=== PATIENT | male | born 1940 | race Caucasian/White ===

== ENCOUNTER 2017-12-21 10:26 | Outpatient (CLI) | payer MEDICARE, BC ==
--- NOTE | 2017-12-22 01:20 | HP ---
DATE OF SERVICE: 12/21/2017. HISTORY OF PRESENT ILLNESS: Mr. Luis Denis is a very pleasant 77-year-old gentleman who presents to the [facility] for evaluation of multiple venous ulcers of the right and left lower legs. The patient states that the ulcerations had been present for approximately 2 weeks. The patient states t hat three days after he noted the presence of the ulcerations, he was seen by his primary care provid er. Shortly thereafter, the patient began receiving dressing changes of Silvadene, gauze, Kerlix, an d Louis for the ulcerations of his right and left lower legs. The patient was referred to the Wound Ce nter by his primary care provider, Marichuy Vidal. PAST MEDICAL HISTORY: 1. Diabetes mellitus. 2. Hypertension. 3. Prostate carcinoma. 4. Atrial fibrillation. 5. Valvular heart disease. PAST SURGICAL HISTORY: Multiple prostate biopsies. MEDICATIONS: 1. Aspirin. 2. Humulin. 3. Toujeo. 4. Calcium. 5. Vitamin D. 6. Xarelto. 7. Olmesartan. ALLERGIES: No known diagnosed allergies. SOCIAL HISTORY: Significant for tobacco use of up to 6 cigars per day for 3 years. The patient admi ts to the consumption of up to 2 drinks per week for 60 years. The patient states that he began cons uming alcohol as a teenager and stopped consuming alcohol at age 74. FAMILY HISTORY: Significant for diabetes mellitus. The patient states that his mother, son, and cou sins were diagnosed with diabetes mellitus. Family history is negative for coronary artery disease. PHYSICAL EXAMINATION: VITAL SIGNS: Temperature 97.5, pulse 58, respirations 20, blood pressure 146/69. Accu-Chek 162. GENERAL: 77-year-old gentleman sitting on table in examination room in no acute distress. HEENT: Normocephalic, atraumatic. NECK: No nuchal rigidity. CHEST: Clear to auscultation. CARDIOVASCULAR: Regular rate and rhythm. ABDOMEN: Soft. EXTREMITIES: Multiple venous ulcers are present over the right and left lower legs. Granulation tis emiliana is present within the margins of each wound. No purulent drainage is associated with any of the wounds. No cellulitis of the right or left lower legs is appreciated. No maceration of the skin of the right or left lower legs is noted. Erythema of the right and left lower legs is present and appe ars to be secondary to stasis changes as opposed to an infectious process. A pedal pulse is palpable on the right and on the left. No significant edema of the right or left lower extremities is apprec iated on exam today. ASSESSMENT AND PLAN: 1. Varicose veins with ulcers and inflammation. Silverlon, Webril, and the 3M Coban two-layer compr ession system will be applied to the ulcerations of the right and left lower legs today. ABDs will b e utilized as needed at the time of dressing changes. No antibiotics will be prescribed today based upon the appearance of the wounds. I will see Mr. Denis again in one week. The patient understands and is in agreement with the preceding treatment plan. 2. Diabetes mellitus. The patient's Accu-Chek in clinic today is 162. The patient has been told at for optimal wound healing, his blood glucoses should remain below 150. 3. Hypertension. 4. Prostate carcinoma. The patient states that he received 28 days of external beam radiation in past by Dr. Golden Hackett. He states that he also received treatment with radioactive iodine i mplants in 10/2014. 5. Atrial fibrillation. The patient states he has been placed on medication for atrial fibrillation in addition to Xarelto. 6. Valvular heart disease.
[2017-12-25] MEDS ORDERED: Sodium Chloride 0.9% 15 ML NEB ONE (16:52)
== END 2017-12-21 10:27 | disposition home or self-care (01) ==
LOC: WCC 10:26
PROVIDERS: ATTEND Family Medicine
DX: I83.219 Varicose veins of right lower extremity with both ulcer of unspecified site and inflammation (principal); L97.919 Non-pressure chronic ulcer of unspecified part of right lower leg with unspecified severity; E11.622 Type 2 diabetes mellitus with other skin ulcer; I10 Essential (primary) hypertension; C61 Malignant neoplasm of prostate; I48.91 Unspecified atrial fibrillation; I38 Endocarditis, valve unspecified
CPT/HCPCS: 29581 ×2; 82962; 97139; G0463; 36416; 99204

== ENCOUNTER 2017-12-28 10:31 | Outpatient (CLI) | payer MEDICARE, BC ==
--- NOTE | 2017-12-28 13:09 | PRG ---
DATE OF SERVICE: 12/28/2017 HISTORY: Mr. Luis Denis is a very pleasant 77-year-old gentleman who presents to the Wound [facility] for evaluation of multiple venous ulcerations of the right and left lower legs. The patient stated at the time of his initial presentation to the Wound Center that the ulcerations had been present fo r approximately 2 weeks. The patient stated that 3 days after he noted the presence of the ulceratio ns, he was seen by his primary care provider. Shortly thereafter, the patient began receiving dressi ng changes of Silvadene, gauze, Kerlix, and OLGA for the ulcerations of his right and left lower legs. The patient was referred to the Wound Center by his primary care provider, Marichuy Hyde. Afte r being seen in the Wound Center, the ulcerations were dressed with Silverlon, Webril, and the 3M Cob an 2 layer compression system. PHYSICAL EXAMINATION: VITAL SIGNS: Temperature 97.8, pulse 68, respirations 20, blood pressure 153/71, Accu-Chek 154. EXTREMITIES: Multiple venous ulcers are present over the right and left lower legs. The wounds are granulating. No purulent drainage is associated with any of the wounds. No cellulitis of the right or left lower leg is appreciated. No maceration of the skin of the right or left lower leg is noted. No cellulitis of the right or left lower leg is appreciated. A posterior tibial pulse is palpable on the right and on the left. No significant edema of the right or left lower extremity is present o n exam today. ASSESSMENT AND PLAN: 1. Varicose veins with ulcers and inflammation. Silverlon, Webril, and 3M Coban 2-layer compression system will be applied to the ulcerations of the right and left lower legs. ABDs will be utilized a s needed at the time of dressing changes. I will see Mr. Denis again in one week. 2. Diabetes mellitus. The patient's Accu-Chek in clinic today is 134. The patient has been reminde d that for optimal wound healing, his blood glucoses should remain below 150. 3. Hypertension. 4. Prostate carcinoma. The patient previously stated that he received 28 days of external beam radi ation in the past by Dr. Golden Dowling. He stated that he also received treatment with radioact paola iodine implants in 10/2014. 5. Atrial fibrillation. The patient stated he had been placed on medication for atrial fibrillation in addition to Xarelto. 6. Valvular heart disease.
[2017-12-28] MEDS ORDERED: Sodium Chloride 0.9% 15 ML NEB ONE (18:09)
== END 2017-12-28 10:32 | disposition home or self-care (01) ==
LOC: WCC 10:31
PROVIDERS: ATTEND Family Medicine
DX: E11.622 Type 2 diabetes mellitus with other skin ulcer (principal); I83.218 Varicose veins of right lower extremity with both ulcer of other part of lower extremity and inflammation; I83.228 Varicose veins of left lower extremity with both ulcer of other part of lower extremity and inflammation; L97.819 Non-pressure chronic ulcer of other part of right lower leg with unspecified severity; L97.829 Non-pressure chronic ulcer of other part of left lower leg with unspecified severity; C61 Malignant neoplasm of prostate; I48.91 Unspecified atrial fibrillation; I38 Endocarditis, valve unspecified
CPT/HCPCS: 36416; 97602; A4218

== ENCOUNTER 2018-01-04 10:59 | Outpatient (CLI) | payer MEDICARE, BC ==
[2018-01-04] MEDS ORDERED: Sodium Chloride 0.9% 15 ML NEB ONE (11:11)
--- NOTE | 2018-01-04 12:19 | PRG ---
DATE OF SERVICE: 01/04/2018 HISTORY: Mr. Luis Denis is a very pleasant 77-year-old gentleman who presents to the Wound Center for evaluation of multiple venous ulcerations of the right and left lower legs. The patient stated at the time of his initial presentation to the Wound Center that the ulcerations had been present for approximately 2 weeks. The patient stated that 3 days after he noted the presence of the ulcerations, he was seen by his primary care provider. Shortly thereafter, the patient began receiving dressing changes of Silvadene, gauze, Kerlix, and OLGA bandages for the ulcerations of his right and left lower legs. The patient was referred to the Wound Center by his primary care provider, Marichuy Vidal. After being seen in the Wound Center, the ulcerations were dressed with Silverlon, Webril, and the 3M Coban 2-layer compression system. PHYSICAL EXAMINATION: VITAL SIGNS: Temperature 97.9, pulse 62, respirations 20, blood pressure 154/ 75. Accu-Chek 263. EXTREMITIES: Multiple venous ulcers are present over the right and left lower legs. Two ulcerations over the right lower leg are present which measure approximately 1.5 x 2.0 cm and 2.5 x 2.0 cm. Two ulcerations are present over the left lower leg which measure approximately 1.5 x 2.8 cm and 1.0 x 0.9 cm. Granulation tissue is present within the margins of each wound. No purulent drainage is associated with any of the wounds. No cellulitis of the right or left lower leg is appreciated. No maceration of the skin of the right or left lower leg is noted. A dorsalis pedis pulse is palpable on the right and on the left. No significant edema of the right or left lower extremity is present on exam today. ASSESSMENT AND PLAN: 1. Varicose veins with ulcers and inflammation. Xeroform gauze, Webril, and the 3M Coban two-layer compression system will be applied to the ulcerations of the right and left lower legs. ABDs will be utilized as needed at the time of dressing changes. I will see Mr. Denis again in one week to 10 days. 2. Diabetes mellitus. The patient's Accu-Chek in clinic today is 263. The patient has been reminded that for optimal wound healing, his blood glucoses should remain below 150. 3. Hypertension. 4. Prostate carcinoma. The patient previously stated that he received 28 days of external beam radiation in the past by Dr. Golden Hackett. He stated that he also received treatment with radioactive iodine implants in 10/2014. 5. Atrial fibrillation. The patient stated he had been placed on medication for atrial fibrillation in addition to Xarelto. 6. Valvular heart disease. MTDD
== END 2018-01-04 11:00 | disposition home or self-care (01) ==
LOC: WCC 10:59
PROVIDERS: ATTEND Family Medicine
DX: I83.228 Varicose veins of left lower extremity with both ulcer of other part of lower extremity and inflammation (principal); I83.218 Varicose veins of right lower extremity with both ulcer of other part of lower extremity and inflammation; L97.819 Non-pressure chronic ulcer of other part of right lower leg with unspecified severity; L97.829 Non-pressure chronic ulcer of other part of left lower leg with unspecified severity; E11.9 Type 2 diabetes mellitus without complications; I10 Essential (primary) hypertension; C61 Malignant neoplasm of prostate; I48.91 Unspecified atrial fibrillation; I38 Endocarditis, valve unspecified
CPT/HCPCS: 29581; 36416; A4218

== ENCOUNTER 2018-01-11 10:22 | Outpatient (CLI) | payer MEDICARE, BC ==
--- NOTE | 2018-01-11 11:29 | PRG ---
DATE OF SERVICE: 01/11/2018 HISTORY: Mr. Luis Denis is a very pleasant 77-year-old gentleman who presents to the [facility] for evaluation of multiple venous ulcerations of the right and left lower legs. The patient stated at the time of his initial presentation to the Wound Center that the ulcerations had been present fo r approximately 2 weeks. The patient stated that 3 days after he noted the presence of the ulceratio ns. He was seen by his primary care provider. Shortly thereafter, the patient began receiving dress ing changes of Silvadene gauze, Kerlix, and Louis bandages for the ulcerations of his right and left lo wer legs. The patient was referred to the Wound Center by his primary care provider, Marichuy kang. After being seen in the Wound Center, the ulcerations were dressed with Silverlon, Webril, and 3M Coban 2 layer compression system. More recently, the patient has been receiving dressing changes of Xeroform gauze, Webril, and 3M Coban 2 layer compression system for the ulcerations of his right and left lower legs. PHYSICAL EXAMINATION: VITAL SIGNS: Temperature 98.2, pulse 72, respirations 16, blood pressure 121/64, Accu-Chek 190. EXTREMITIES: Multiple venous ulcerations are present over the right and left lower legs. Two ulcera tions are present over the right lower leg which measure approximately 2.3 x 1.9 cm and 1.2 x 1.5 cm. One ulceration is present over the left lower leg which measures approximately 1.3 x 2.9 cm. Granu lation tissue is present within the margins of each wound. No purulent drainage is associated with a ny of the wounds. No cellulitis of the right or left lower legs is appreciated. No maceration of th e skin of the right or left lower leg is noted. A dorsalis pedis pulse is palpable on the right and on the left. No significant edema of the right or left lower extremity is present on exam today. ASSESSMENT AND PLAN: 1. Varicose veins with ulcers and inflammation. Xeroform gauze, Webril, and 3M Coban two-layer comp ression system will be applied to the ulcerations of the right and left lower legs today. Arrangemen ts will be made for the preceding dressing changes 1-2 times per week after cleansing and irrigation with the assistance of Home Health. The patient's states she will contact the clinic in order t o schedule the patient's next followup appointment. 2. Diabetes mellitus. The patient's Accu-Chek in clinic today is 190. The patient has been reminde d that for optimal wound healing, his blood glucoses should remain below 150. 3. Hypertension. 4. Prostate carcinoma. The patient previously stated that he received 28 days of external beam radi ation in the past by Dr. Golden Hackett. He stated that he also received treatment with radioacti ve iodine implants in 10/2014. 5. Atrial fibrillation. The patient previously stated he had been placed on medication for atrial f ibrillation in addition to Xarelto. 6. Valvular heart disease.
== END 2018-01-11 10:23 | disposition home or self-care (01) ==
LOC: WCC 10:22
PROVIDERS: ATTEND Family Medicine
DX: I83.209 Varicose veins of unspecified lower extremity with both ulcer of unspecified site and inflammation (principal); E11.622 Type 2 diabetes mellitus with other skin ulcer; L97.929 Non-pressure chronic ulcer of unspecified part of left lower leg with unspecified severity; L97.919 Non-pressure chronic ulcer of unspecified part of right lower leg with unspecified severity; I10 Essential (primary) hypertension; C61 Malignant neoplasm of prostate; I48.91 Unspecified atrial fibrillation; I38 Endocarditis, valve unspecified

== ENCOUNTER 2018-01-31 10:00 | Outpatient (CLI) | payer MEDICARE, BC | END 2018-01-31 10:01 | disposition home or self-care (01) | LOC: WCC 10:00 | PROVIDERS: ATTEND Family Medicine | DX: I83.209 Varicose veins of unspecified lower extremity with both ulcer of unspecified site and inflammation (principal); L97.929 Non-pressure chronic ulcer of unspecified part of left lower leg with unspecified severity; L97.919 Non-pressure chronic ulcer of unspecified part of right lower leg with unspecified severity | CPT/HCPCS: 82962; G0463; 36416; 99211 ==

== ENCOUNTER 2018-02-08 10:51 | Outpatient (CLI) | payer MEDICARE, BC ==
--- NOTE | 2018-02-08 12:31 | PRG ---
DATE OF SERVICE: 02/08/2018 HISTORY: Mr. Luis Denis is a very pleasant 77-year-old gentleman who presents to the [facility] for evaluation of multiple venous ulcerations of the right and left lower legs. The patient stated at the time of his initial presentation to the Wound Center that the ulcerations had been present fo r approximately 2 weeks. The patient stated that 3 days after he noted the presence of the ulceratio ns. He was seen by his primary care provider. Shortly thereafter, the patient began receiving dress ing changes of Silvadene, gauze, Kerlix, and Louis bandages for the ulcerations of his right and left l ower legs. The patient was referred to the Wound Center by his primary care provider, Marichuy knutson. After being seen in the Wound Center, the ulcerations were dressed with Silverlon, Webril, and 3 M Coban 2 layer compression system. More recently, the patient received dressing changes of Xeroform gauze, Webril, and 3M Coban 2 layer compression system for the ulcerations of his right and left low er legs. PHYSICAL EXAMINATION: VITAL SIGNS: Temperature 98.0, pulse 71, respirations 20, blood pressure 91/53. Accu-Chek 170. EXTREMITIES: Only one ulceration is present over the left lower leg which measures approximately 0.1 x 0.1 cm. No purulent drainage is associated with the wound. No cellulitis of the right or left lo wer legs is appreciated. No maceration of the skin of the right or left lower leg is noted. No sign ificant edema of the right or left lower extremity is present on exam today. ASSESSMENT AND PLAN: 1. Varicose veins with ulcers and inflammation. As stated above, only 1 ulceration over the left lo wer leg remains. The ulceration will be dressed with Xeroform gauze and Kerlix. The patient will co ntinue to utilize his compression garments. The ulceration of the left lower leg has almost healed c ompletely and Mr. Denis will be discharged from clinic today with followup on a p.r.n. basis. 2. Diabetes mellitus. The patient's Accu-Chek in clinic today is 170. The patient has been reminde d that for optimal wound healing, his blood glucoses should remain below 150. 3. Hypertension. 4. Prostate carcinoma. The patient previously stated that he received 28 days of external beam radi ation in the past by Dr. Golden Hackett. He stated that he also received treatment with radioacti ve iodine implants in 10/2014. 5. Atrial fibrillation. The patient previously stated that he has been placed on medication for atr ial fibrillation in addition to Xarelto. 6. Valvular heart disease.
[2018-02-09] MEDS ORDERED: Sodium Chloride 0.9% 15 ML NEB ONE (12:34)
== END 2018-02-08 10:52 | disposition home or self-care (01) ==
LOC: WCC 10:51
PROVIDERS: ATTEND Family Medicine
DX: I83.229 Varicose veins of left lower extremity with both ulcer of unspecified site and inflammation (principal); I10 Essential (primary) hypertension; E11.9 Type 2 diabetes mellitus without complications; C61 Malignant neoplasm of prostate; I48.91 Unspecified atrial fibrillation; I38 Endocarditis, valve unspecified
CPT/HCPCS: 97602

== ENCOUNTER 2018-03-22 08:49 | Day surgery (SDC) | payer MEDICARE, BC ==
[2018-03-21 15:21] VITALS: BMI 33.1
--- NOTE | 2018-03-22 11:14 | OP ---
DATE OF PROCEDURE: 03/22/2018 SURGEON: Jeremias Vasquez M.D. OPERATIVE PROCEDURE: Colonoscopy. PREOPERATIVE DIAGNOSES: Recent severe anemia with hemoglobin 6.3 on 03/01/2018 after starting Xarelt o. He was transfused in [place], had reportedly normal EGDs, off of Xarelto now. His hemoglobin is 8 .9 as of 03/19/2018, here for colonoscopy. POSTOPERATIVE DIAGNOSES: 1. Diverticulosis coli. No AVMs, no polyps, no signs of bleeding. 2. Slight erythema in the rectum, maybe consistent with previous radiation therapy of the prostate, but no overt neovascularization, friable vessels which were high risk for rebleeding. RECOMMENDATIONS: 1. Iron supplementation. 2. Capsule endoscopy of small bowel. If this is negative Hematologic evaluation would be reasonable . It is unclear if he actually had a GI bleed, although I suspect he had some blood loss after start ing the Xarelto. That is probably going to have to be held for now, but I would defer to his primary care physician and checking department supervisor to make that final decision. 3. He has a persistently elevated MCV with normal B12 and folate. 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 ANESTHESIA: TIVA. PROCEDURE IN DETAIL: After the patient was informed of the risks and benefits and possible complicat ions of endoscopy including bleeding, perforation, reaction to medication, aspiration informed consen t was obtained. The patient was brought to endoscopy suite. He was sedated in gradual fashion. Onc e he was comfortable, a rectal exam was performed. The endoscope was advanced through the anal canal , to the colon to the cecum which was identified by the ileocecal valve and appendiceal orifice. Th e scope was slowly removed. There was good visualization of mucosa. There are no masses, lesions or arteriovenous malformations identified. There was slight erythema in the area of the rectal mucosa with slight atrophy of the mucosa. This could be from previous radiation therapy, although it is not clear to me if he has received that. There is no neovascularization or friable vessels which would indicate bleeding. The patient has no history of overt rectal bleeding. The scope was removed. The patient tolerated the procedure well with no complications.
[2018-03-22] MEDS ORDERED: Lidocaine 1% PF 5 ML VIAL ONE (13:07)
[2018-03-22] MEDS ORDERED: PHENYLEPHRINE-NS 100 MCG/ML 10 ML SYRINGE ONE (13:07)
[2018-03-22] MEDS ORDERED: PROPOFOL 200 MG/20 ML VIAL ONE (13:07)
--- NOTE | 2018-03-22 13:32 | CT ---
CT ABDOMEN ND PELVIS NONCONTRAST: HISTORY: Recent colonoscopy. Drop in hemoglobin. FINDINGS: Each renal collecting system, ureter, and urinary bladder are decompressed without stone apparent. Lack of contrast limits evaluation for other abnormalities. There is a very small amount of bilatera l pleural fluid at the lung bases and bibasilar atelectasis. A lobular mass at the right anterior uriel ng base is 2.2 x 1.1 cm greatest diameters on the axial images. A 1.0 cm rounded mass is also presen t at the right posterolateral lung base. A small amount of free fluid within the abdomen is present around the anterior dome of the liver, the spleen, and along each paracolic gutter. Cysts arise from the cortex of the kidneys. Hyperdense stones are present within the gallbladder lumen. There is ca lcification within the arterial structures. Brachytherapy seeds are evident at the prostate bed. Th ere is calcification throughout the arterial structures. IMPRESSION: 1. Small amount of ascites. Large volume fluid collection is not apparent to explain recent drop in hemoglobin. 2. Lobular masses right lung base. Please consider dedicated CT chest with IV contrast for complete evaluation. 3. Cholelithiasis. 4. Atherosclerosis. POS: [facility]
== END 2018-03-22 12:10 | disposition home or self-care (01) ==
LOC: SDC 08:49
PROVIDERS: ATTEND Internal Medicine Gastroenterology
PROC: 0DJD8ZZ Inspection of Lower Intestinal Tract, Via Natural or Artificial Opening Endoscopic (ICD-10-PCS; principal; 2018-03-22)
DX: K59.00 Constipation, unspecified (principal); D64.89 Other specified anemias; K57.30 Diverticulosis of large intestine without perforation or abscess without bleeding; I48.91 Unspecified atrial fibrillation; Z79.01 Long term (current) use of anticoagulants; Z87.891 Personal history of nicotine dependence
CPT/HCPCS: 36416; 74176; J2001; J2704

== ENCOUNTER 2018-03-30 10:18 | Outpatient (CLI) | payer MEDICARE, BC ==
[2018-03-30] MEDS ORDERED: Iopamidol 370 76% 100 ML VIAL ONE (13:10)
--- NOTE | 2018-03-30 13:40 | CT ---
CT OF CHEST PERFORMED WITH AND WITHOUT CONTRAST ENHANCEMENT: HISTORY: Prostate caner with chemo and radiation. Lung mass is noted on recent CT of the abdomen and pelvis w ithin the right middle lobe. This was done for further evaluation. FINDINGS: There are fairly extensive coronary artery calcifications seen. A lobulated right middle lobe lung m ass is demonstrated. It measures 3 cm in maximum dimension. There is a smaller right noncalcified r ight lower lobe pulmonary nodule present measuring 9-10 mm. No additional lung masses are seen. The re are small bilateral pleural effusions present. There are bibasilar atelectatic lung changes seen. No significant hilar lymphadenopathy is seen. There are some slightly prominent mediastinal nodes; h owever, these are subcentimeter in size and nonspecific. These include some small right paratracheal , aorticopulmonary, and subcarinal lymph nodes. Visualized liver parenchyma shows no discrete mass. Gallstones are present. Right and left adrenal glands were normal. There is some ascites seen within the upper abdomen. Right renal cysts are iden tified. The upper pole cyst has a thin rim of calcification. IMPRESSION: 1. Two noncalcified pulmonary nodules, 1 in the right middle lobe and 1 in the right lower lobe. Th is would be suspicious for a neoplastic process, possibly metastatic disease related to patient's pro state cancer. 2. Extensive coronary artery calcifications. 3. Small bilateral pleural effusions and mild ascites. 4. Probable gallstones. 5. No evidence of any bony metastatic disease. POS: [facility]
== END 2018-03-30 10:19 | disposition home or self-care (01) ==
LOC: CT 10:18
PROVIDERS: ATTEND Internal Medicine Gastroenterology
DX: R93.3 Abnormal findings on diagnostic imaging of other parts of digestive tract (principal); D64.9 Anemia, unspecified; R91.8 Other nonspecific abnormal finding of lung field; I25.10 Atherosclerotic heart disease of native coronary artery without angina pectoris; J90 Pleural effusion, not elsewhere classified; R18.8 Other ascites
CPT/HCPCS: 71270; 74160; 82565

== ENCOUNTER 2018-04-12 11:55 | Day surgery (SDC) | payer MEDICARE, BC ==
[2018-04-12] MEDS ORDERED: diphenhydrAMINE 25 MG CAP PO SCH (12:45)
[2018-04-12] MEDS ORDERED: Acetaminophen 500 MG TAB PO SCH (12:45)
[2018-04-12 16:30] VITALS: BMI 33.0
[2018-04-12] MEDS ORDERED: Furosemide 20 MG/2 ML VIAL SLOW IVP SCH (16:45)
[2018-04-12 17:13] LABS: Hemoglobin 8.6 g/dL (14.0-18.0)
[2018-04-12 21:45] LABS: #Lymphocytes 0.9 thou/uL (1.20-3.40); #Monocytes 0.4 thou/uL (0.11-0.59); %Basophils 0.2 % (0.0-1.0); %Eosinophils 0.4 % (0.0-10.0); %Lymphocytes 20.1 % (21.0-51.0); %Monocytes 9.7 % (0.0-10.0); %Neutrophils 69.6 % (42.0-75.0); Hemoglobin 9.8 g/dL (14.0-18.0); Mean Corpuscular HGB CONC 32.8 g/dL (32.0-36.0); Mean Corpuscular Hemoglobin 34.2 pg (27.0-31.0); Mean Platelet Volume 7.8 fL (7.4-10.4); Platelet Count 164 thou/uL (130-400); RBC Distribution Width 17.9 % (11.5-14.5); Red Blood Cell (RBC) Count 2.87 mill/uL (4.70-6.10); White Blood Cell (WBC) Count 4.3 thou/uL (4.8-10.8)
[2018-04-12 21:50] VITALS: BP 134/71; TEMP 98.1
== END 2018-04-12 21:50 | disposition home or self-care (01) ==
LOC: SDC/OP 11:55 → 2SW 11:56 → SDC/OP 21:50
PROVIDERS: ATTEND Internal Medicine Hematology & Oncology
PROC: 30233N1 Transfusion of Nonautologous Red Blood Cells into Peripheral Vein, Percutaneous Approach (ICD-10-PCS; principal; 2018-04-12)
DX: D64.9 Anemia, unspecified (principal); D69.6 Thrombocytopenia, unspecified
CPT/HCPCS: 36430; 85014; 85018; 85025; 86850; 86900; 86901; 86920; P9016; 36415; J1940

== ENCOUNTER 2018-04-26 10:55 | Outpatient (CLI) | payer MEDICARE, BC | END 2018-04-26 10:56 | disposition home or self-care (01) | LOC: BICRAD 10:55 | PROVIDERS: ATTEND Podiatrist | DX: M19.071 Primary osteoarthritis, right ankle and foot (principal); M86.8X7 Other osteomyelitis, ankle and foot; M79.89 Other specified soft tissue disorders ==

== ENCOUNTER 2018-04-26 12:30 | Outpatient (CLI) | payer MEDICARE, BC ==
--- NOTE | 2018-04-26 14:42 | PET ---
PET WITH CT SKULL TO MID THIGH: COMPARISON: Reference is made to chest, abdomen, and pelvis CT 03/30/18. CLINICAL HISTORY: Lung nodules. There is appropriate biodistribution of radiotracer activity. FINDINGS: Spiculated nodule of the right middle lobe demonstrates abnormal, hypermetabolic activity, with a max imum SUV of approximately 3.2. The previously documented approximate 9 mm round noncalcified right l ower lobe pulmonary nodule reveals increased metabolic activity with SUV of approximately 1.4. This cannot be confirmed as hypermetabolic, possibly due to its small size. Therefore, continued imaging followup is warranted in this regard. There is a focus of hypermetabolic activity at the right lateral tongue base with SUV of approximatel y 4.7. Anatomical detail is limited within this region on the basis of the noncontrast attenuation c orrection CT images. Hypermetabolic right inguinal adenopathy is present with SUV measuring up to 3. 2, just lateral to the right inguinal canal. There are multifocal dermal-based hypermetabolic foci o f the region of the gluteal cleft bilaterally and within the posterior right perineal region with SUV measuring up to 11.5. IMPRESSION: 1. Hypermetabolic activity is confirmed within the spiculated right middle lobe pulmonary nodule com patible with malignancy. The right lower lobe pulmonary nodule demonstrates increased metabolic acti vity, although it cannot be confirmed as hypermetabolic possibly due to its small size, and, therefor e, requires continued imaging followup. 2. Foci of hypermetabolic activity, located within the dermal layer of the posterior gluteal region and perineum, as discussed as discussed above. As these findings do reside at or immediately underly ing the skin surface, recommend correlation with clinical exam. 3. Inguinal adenopathy, right-sided. 4. Nonspecific hypermetabolic focus of the right aspect of the oropharynx. Correlate with direct vi sualization. POS: [facility]
== END 2018-04-26 12:31 | disposition home or self-care (01) ==
LOC: PET 12:30
PROVIDERS: ATTEND Internal Medicine Critical Care Medicine
DX: R91.1 Solitary pulmonary nodule (principal); R93.8 Abnormal findings on diagnostic imaging of other specified body structures; R59.0 Localized enlarged lymph nodes
CPT/HCPCS: 78815; 80048; 82306; 82570; 82607; 82746; 83970; 84156; 84165; 85025; A9552; 36415

== ENCOUNTER 2018-05-10 12:36 | Outpatient (CLI) | payer MEDICARE, BC | END 2018-05-10 12:37 | disposition home or self-care (01) | LOC: BICRAD 12:36 | PROVIDERS: ATTEND Podiatrist | DX: M86.179 Other acute osteomyelitis, unspecified ankle and foot (principal) ==

== ENCOUNTER 2018-05-15 08:37 | Day surgery (SDC) | payer MEDICARE, BC ==
[2018-05-14 14:26] VITALS: BMI 33.7
[2018-05-15 09:57] LABS: INR-International Normal Ratio 1.2; PTT 29.6 SEC (22.9-36.1); Prothrombin Time 15.2 SEC (12.0-14.7)
--- NOTE | 2018-05-15 13:39 | CT ---
CT GUIDED RIGHT MIDDLE LOBE MASS BIOPSY: Date: 05/15/18 HISTORY: Patient with history of lung nodules. History of cancer. Evaluate for metastatic disease. TECHNIQUE/FINDINGS: Informed consent was obtained from the patient. The right middle lobe lesion was localized using CT g uidance. The overlying skin was prepped and draped in the usual sterile manner. A 1% lidocaine soluti on was used to anesthetize the overlying soft tissues. An outer 19 gauge needle was placed into the r ight middle lobe lesion. Three core biopsies obtained. Specimen sent to pathology. Post biopsy, there was some intraparenchymal hemorrhage noted. No evidence of postprocedure pneumothorax seen. Specimen given to pathology. Pathologist indicated visualization of diagnostic tissue. Pathology is pending. IMPRESSION: Successful CT guided right middle lobe mass biopsy. POS: [facility]
--- NOTE | 2018-05-15 13:44 | RAD ---
INSPIRATORY EXPIRATORY RADIOGRAPHS CHEST: History: Right middle lobe mass biopsy. FINDINGS: Severe bilateral shoulder arthritic changes seen. An area of ill-defined density seen in the right middle lobe compatible with the patient's right midd le lobe mass and post biopsy alveolar hemorrhage. This has not significantly increased in size since the previous CT post biopsy. No evidence of post procedure pneumothorax seen. IMPRESSION: Right middle lobe opacity. No evidence of post biopsy pneumothorax is seen. POS: [facility]
[2018-05-15 15:11] VITALS: BP 126/64; TEMP 97.5
== END 2018-05-15 13:20 | disposition home or self-care (01) ==
LOC: CT 08:37
PROVIDERS: ATTEND Internal Medicine Critical Care Medicine
PROC: 0BBD3ZX Excision of Right Middle Lung Lobe, Percutaneous Approach, Diagnostic (ICD-10-PCS; principal; 2018-05-15)
DX: C78.01 Secondary malignant neoplasm of right lung (principal); E11.9 Type 2 diabetes mellitus without complications; I10 Essential (primary) hypertension; Z85.46 Personal history of malignant neoplasm of prostate
CPT/HCPCS: 32405; 36415; 71045; 77002; 85610; 85730; 88305; 88333; 88341; 88342

== ENCOUNTER 2018-05-17 08:40 | Outpatient (CLI) | payer MEDICARE, BC ==
--- NOTE | 2018-05-17 11:32 | MRI ---
MRI LUMBAR SPINE WITHOUT CONTRAST: Date: 05/17/18 INDICATION: History of bilateral leg weakness for a few years. COMPARISON: CT of the chest and abdomen with and without contrast dated 03/30/18. FINDINGS: There is diffuse intermediate signal intensity involving the bone marrow of the lumbosacral spine whi ch matches that of the surrounding skeletal musculature. There are punctate areas of retained fatty m arrow within the L5 vertebra, as well as the upper sacrum. No acute fracture is evident. The conus se ems to terminate at approximately L1. There is subtle Grade I anterolisthesis of L4 on L5. There is loss of normal disc signal and height at all lumbar intervertebral levels, but most pronounc ed at L1-2, L3-4, L4-5, and L5-S1. There are bilateral renal cysts that are better detailed on the CT of the chest and abdomen dated 10/07. No definite retroperitoneal lymphadenopathy is evident. There is nonspecific mild diffuse anasarca within the posterior back. There is some mild atrophy of the right psoas muscle which may reflect some sequelae of deconditionin g or prior injury. At L5-S1, there is a broad based disc bulge with a superimposed left paracentral disc protrusion caus ing moderate to severe left lateral recess narrowing with potential for contact of the traversing lef t S1 nerve root, best seen on image 57 of series 6 and image 13 of series 3. The broad based bulge, i n addition to the loss of disc space height and facet hypertrophy, induces moderate bilateral neural foraminal narrowing. At the L4-5 level, there is severe central canal narrowing due to broad based bulge, facet hypertroph y, and ligamentum flavum hypertrophy. There is moderate to severe bilateral neural foraminal narrowin g due to the degenerative changes bilaterally. At L3-4, there is a broad based bulge with ligamentum flavum hypertrophy and facet hypertrophy induci ng severe central canal narrowing with moderate to severe left and moderate right neural foraminal na rrowing. At L2-3, there is a broad based bulge with facet hypertrophy inducing mild bilateral neural foraminal narrowing and mild central canal narrowing. At L1-2, there is a broad based bulge with facet hypertrophy inducing mild central canal narrowing an d mild bilateral neural foraminal narrowing, right greater than left. At T12-L1, there is no appreciable central canal or neural foraminal narrowing. IMPRESSION: 1. Diffuse intermediate signal intensity involving the bone marrow of the lumbosacral spine can be s een with red marrow hypoplasia related to chronic anemia, chronic smoking, or obesity. 2. Severe central canal narrowing at L3-4 and L4-5. 3. Moderate to severe left lateral recess narrowing at L5-S1. 4. Multilevel neural foraminal narrowing as above. 5. Bilateral renal cysts. POS: [facility]
== END 2018-05-17 08:41 | disposition home or self-care (01) ==
LOC: TBSIIMAG 08:40
PROVIDERS: ATTEND Neurological Surgery
DX: M54.16 Radiculopathy, lumbar region (principal); M48.07 Spinal stenosis, lumbosacral region; N28.1 Cyst of kidney, acquired; M99.83 Other biomechanical lesions of lumbar region
CPT/HCPCS: 72148

== ENCOUNTER 2018-05-30 05:47 | Day surgery (SDC) | payer MEDICARE, BC ==
[2018-05-29 12:42] VITALS: BMI 31.4
--- NOTE | 2018-05-30 02:02 | HP ---
HISTORY OF PRESENT ILLNESS: Mr. Denis is a 78-year-old man known to us for previous evaluation of ce rvical radiculopathy and lumbar back pain. He returns now with severe right-hand pain, which seems t o fit a carpal tunnel syndrome. He is admitted with our neurology colleagues who would perform at present this is most concerning thing that he is contending with in such hopes to move forward wi treatment. PAST MEDICAL HISTORY: Coronary artery disease, prostate cancer, atrial fibrillation, congestive hear t failure. PAST SURGICAL HISTORY: Tonsillectomy, radioactive prostate seeding. ALLERGIES: No known drug allergies. PHYSICAL EXAMINATION: Patient is alert and oriented x3. Positive median nerve Tinel's of the right hand, decreased motor function and dexterity in the right hand. ASSESSMENT: Carpal tunnel syndrome of the right hand. PLAN: Dr. Eubanks met with the patient, reviewed imaging and advocated for a right carpal tunnel relea se. He explained to the patient the risks, benefits, and alternatives of the procedure. The patient expressed understanding and would like to move forward with surgery as discussed. I do believe the patient is mentally competent and capable of making medical decisions for himself and we will move fo rward with surgery as planned. Lamonte Huizar PA-C, dictating under Dr. Eubanks.
[2018-05-30] MEDS ORDERED: Fentanyl 100 MCG/2 ML VIAL ONE (06:09)
[2018-05-30] MEDS ORDERED: Midazolam HCl 2 mg/2 ml Vial ONE (06:09)
[2018-05-30] MEDS ORDERED: Lidocaine 1% w/Epinephrine 1:100K 30 ML VIAL ONE (06:22)
[2018-05-30] MEDS ORDERED: CEFAZOLIN/Water 2 GM/20 ML SYRINGE ONE (06:49)
[2018-05-30] MEDS ORDERED: Dextrose 50% Abboject 50 ML SYRINGE ONE (06:59)
--- NOTE | 2018-05-30 07:47 | OP ---
DATE OF PROCEDURE: 05/30/2018 SURGEON: Luis Eubanks M.D. [employer]PERVISOR [employer]ACH[employer] WORKERS: Lamonte Huizar PA-C INDICATION: Pain. PREOPERATIVE DIAGNOSIS: Right carpal tunnel syndrome. PROCEDURE: Right carpal tunnel release. ANESTHESIA: TIVA and local. PROCEDURE IN DETAIL: The patient was brought into the operating room and placed on table in a supine position. He was placed under anesthesia. His arm was extended perpendicular to the body and exten ded up to the level of the elbow. After prepping and draping and after an appropriate operative paus e, a linear incision was planned across the crease in the wrist in line with the long axis of the fou rth digit. This area was infiltrated with lidocaine. An incision was then created. A self-retainin g retractor was placed. The carpal tunnel ligament was identified and subsequently incised. The inc ision was extended in both proximal and distal directions until there was complete decompression of t he carpal tunnel elements. The wound was irrigated. Hemostasis was maintained throughout. The woun d was then closed in anatomic layers and a pressure dressing was applied. There were no known proced ural complications.
[2018-05-30] MEDS ORDERED: ePHEDrine/0.9% NaCl/PF SYRINGE 50 mg/10 ml ONE (14:33)
[2018-05-30] MEDS ORDERED: Lidocaine 1% PF 5 ML VIAL ONE (14:33)
[2018-05-30] MEDS ORDERED: PROPOFOL 200 MG/20 ML VIAL ONE (14:33)
== END 2018-05-30 09:01 | disposition home or self-care (01) ==
LOC: SDC 05:47
PROVIDERS: ATTEND Neurological Surgery
PROC: 01N50ZZ Release Median Nerve, Open Approach (ICD-10-PCS; principal; 2018-05-30)
DX: G56.01 Carpal tunnel syndrome, right upper limb (principal); I25.10 Atherosclerotic heart disease of native coronary artery without angina pectoris; I48.91 Unspecified atrial fibrillation; I50.9 Heart failure, unspecified; Z79.82 Long term (current) use of aspirin; Z79.899 Other long term (current) drug therapy; Z79.4 Long term (current) use of insulin
CPT/HCPCS: 36416; J2001; J2250; J2704; J3010

== ENCOUNTER 2018-06-14 15:26 | Emergency (ER) | payer MEDICARE, BC | END 2018-06-14 15:50 | disposition home or self-care (01) | LOC: SCSER 15:26 | DX: S90.422A Blister (nonthermal), left great toe, initial encounter (principal); E11.9 Type 2 diabetes mellitus without complications; I50.9 Heart failure, unspecified; Z87.891 Personal history of nicotine dependence; X58.XXXA Exposure to other specified factors, initial encounter | CPT/HCPCS: 99283 ==

== ENCOUNTER 2018-10-30 09:28 | Outpatient (CLI) | payer MEDICARE, BC ==
[2018-10-30] MEDS ORDERED: Iopamidol 370 76% 100 ML VIAL ONE (10:05)
--- NOTE | 2018-10-30 11:58 | CT ---
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 Technique: Multiple contiguous axial images were obtained in a CT of the chest with contrast. Coronal reformats were performed. FINDINGS: Small bilateral pleural effusions are seen, left greater than right. Atelectasis is seen in the left lung base. A 5 mm nodule is seen Image 44 of 55 in the right lower lobe. No other pulmonary nodules a re identified. The heart is normal in size without focal cardiac abnormality. No hilar or mediastinal lymphadenopath y are appreciated. There is a small to moderate amount of ascites. The visualized subdiaphragmatic structures are unrema rkable. Degenerative changes are seen in the spine. There is diffuse sclerosis of the bones without o bvious focal mass within the bones. There is a wedge compression fracture of the T12 vertebral body s uperior endplate. IMPRESSION: 1. Small right lower lobe pulmonary nodule. 2. Bilateral pleural effusions. POS: [facility]
== END 2018-10-30 09:29 | disposition home or self-care (01) ==
LOC: CT 09:28
PROVIDERS: ATTEND Internal Medicine Hematology & Oncology
DX: C78.00 Secondary malignant neoplasm of unspecified lung (principal); C61 Malignant neoplasm of prostate; R91.1 Solitary pulmonary nodule; R91.8 Other nonspecific abnormal finding of lung field; J90 Pleural effusion, not elsewhere classified; K76.89 Other specified diseases of liver; R18.8 Other ascites
CPT/HCPCS: 71260; 82565

== ENCOUNTER 2019-01-01 09:54 | Outpatient (CLI) | payer MEDICARE, BC ==
--- NOTE | 2019-01-01 11:26 | RAD ---
PA AND LATERAL VIEWS OF THE CHEST: History: Dyspnea. FINDINGS: Comparison is made with exam of 12-12-18. The heart size is enlarged. There is a moderate sized left pleural with adjacent consolidation. The a latia is tortuous. The right lung is clear. IMPRESSION: Stable left moderate pleural effusion and adjacent consolidation. POS: [facility]
== END 2019-01-01 09:55 | disposition home or self-care (01) ==
LOC: RAD 09:54
PROVIDERS: ATTEND Internal Medicine Critical Care Medicine
DX: R06.00 Dyspnea, unspecified (principal); J90 Pleural effusion, not elsewhere classified
CPT/HCPCS: 71046